=== PATIENT | female | born 1960 | race Caucasian/White ===

== ENCOUNTER 2018-09-05 15:20 | Emergency (ER) | payer OTHER ==
[~2018-09-05] VITALS: Ht 172.7 cm; Wt 86.2 kg
[2018-09-05 16:24] VITALS: BP 158/85
== END 2018-09-05 16:30 | disposition home or self-care (01) ==
LOC: FSED 15:20
DX: M54.2 Cervicalgia (principal); M54.6 Pain in thoracic spine; S16.1XXA Strain of muscle, fascia and tendon at neck level, initial encounter; S23.3XXA Sprain of ligaments of thoracic spine, initial encounter
CPT/HCPCS: 99282

== ENCOUNTER 2018-10-24 20:58 | Emergency (ER) | payer OTHER ==
[~2018-10-24] VITALS: Ht 172.7 cm; Wt 86.2 kg
[2018-10-25] MEDS ORDERED: VALIUM2 MG PO (02:56)
[2018-10-25] MEDS ORDERED: ULTRAM50 MG PO (02:56)
== END 2018-10-24 22:08 | disposition left against medical advice (07) ==
LOC: FSED 20:58
DX: S00.83XA Contusion of other part of head, initial encounter (principal); S50.01XA Contusion of right elbow, initial encounter; S80.02XA Contusion of left knee, initial encounter; S20.219A Contusion of unspecified front wall of thorax, initial encounter; W17.89XA Other fall from one level to another, initial encounter; Y93.I9 Activity, other involving external motion; Y92.488 Other paved roadways as the place of occurrence of the external cause
CPT/HCPCS: 99282

== ENCOUNTER 2018-10-24 22:28 | Emergency (ER) | payer OTHER ==
[~2018-10-24] VITALS: Ht 172.7 cm; Wt 86.2 kg
[2018-10-25 00:03] LABS: BASOPHILS # (AUTO) 0.1 (0.0-0.1); BASOPHILS % 0.6 % (0.0-1.0); HEMATOCRIT 42.3 % (34.2-44.1); HEMOGLOBIN 13.9 g/dL (12.0-16.0); LYMPHOCYTES # (AUTO) 2.9 (1.0-3.2); MEAN CORPUSCULAR HEMOGLOBIN 30.5 pg (28-32); MEAN CORPUSCULAR HGB CONC 32.9 g/dL (31-35); MEAN CORPUSCULAR VOLUME 92.8 fL (81-99); MONOCYTES # (AUTO) 1.1 (0.2-0.8); MONOCYTES % 8.9 % (4.4-11.3); NEUTROPHILS # (AUTO) 7.9 (2.1-6.9); NEUTROPHILS % 66.2 % (38.7-80.0); PLATELET COUNT 292 x10e3/uL (140-360); RED BLOOD COUNT 4.56 x10e6/uL (3.6-5.1); RED CELL DISTRIBUTION WIDTH 12.4 % (11.7-14.4)
[2018-10-25 00:23] LABS: ALANINE AMINOTRANSFERASE 22 IU/L (0-55); ALBUMIN 3.5 g/dL (3.5-5.0); ALKALINE PHOSPHATASE 81 IU/L (40-150); ANION GAP 13.8 mmol/L (8-16); BLOOD UREA NITROGEN 12 mg/dL (7-26); BUN/CREATININE RATIO 15 (6-25); CALCIUM 9.1 mg/dL (8.4-10.2); CARBON DIOXIDE 23 mmol/L (22-29); CHLORIDE 105 mmol/L (98-107); CREATININE, SERUM 0.82 mg/dL (0.57-1.11); EST GLOMERULAR FILTRATION RATE > 60 ML/MIN (60-); GLUCOSE 117 mg/dL (74-118); POTASSIUM 3.8 mmol/L (3.5-5.1); SODIUM 138 mmol/L (136-145)
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
[2018-10-25] MEDS ORDERED: ONDANSETRON HCL INJ 2MG/ML 2ML 2 MG/ML VIAL IV STA (01:53)
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
[2018-10-25] MEDS ORDERED: MORPHINE SULFATE 5 MG/ML VIAL IV ONE (02:00)
[2018-10-25] MEDS ORDERED: MORPHINE SULFATE INJ 4 MG/ML INJ 1ML ONE ×2 (02:04→04:17)
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
[2018-10-25] MEDS ORDERED: VALIUM2 MG PO (02:56)
[2018-10-25] MEDS ORDERED: ULTRAM50 MG PO (02:56)
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
[2018-10-25] MEDS ORDERED: KETOROLAC TROMETHAMINE 30 MG/ML VIAL ONE (04:17)
[2018-10-25] MEDS ORDERED: MORPHINE SULFATE INJ 4 MG/ML INJ 1ML IV STA (04:33)
[2018-10-25] MEDS ORDERED: KETOROLAC TROMETHAMINE 30 MG/ML VIAL IV STA (04:33)
[2018-10-25 04:44] VITALS: BP 116/74
[2018-10-25] MEDS ORDERED: SODIUM CHLORIDE 0.9% 50ML 50 ML ONE (11:17)
[2018-10-25] MEDS ORDERED: IOPAMIDOL 370 MG/ML 200 ML INFUS..BTL INJ ONE (11:17)
== END 2018-10-25 04:45 | disposition home or self-care (01) ==
LOC: ER 22:28
DX: S00.83XA Contusion of other part of head, initial encounter (principal); S20.219A Contusion of unspecified front wall of thorax, initial encounter; S50.01XA Contusion of right elbow, initial encounter; S80.02XA Contusion of left knee, initial encounter; W17.89XA Other fall from one level to another, initial encounter; Y93.I9 Activity, other involving external motion; Y92.488 Other paved roadways as the place of occurrence of the external cause
CPT/HCPCS: 36415; 70450; 71260; 72125; 73060 ×2; 73080; 73110; 73562; 74177; 80053; 85025; 96374; 99284; J1885; J2270; J2405; Q9967

== ENCOUNTER 2019-05-29 06:59 | Emergency (ER) | payer OTHER ==
[~2019-05-29] VITALS: Ht 172.7 cm; Wt 86.2 kg
[~2019-05-29 06:59] MED LIST: ULTRAM50 MG PO; VALIUM2 MG PO
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
[2019-05-29] MEDS: DEXAMETHASONE SOD PHOS 10 MG/1 ML VIAL IM ONE (07:22)
[2019-05-29] MEDS ORDERED: DEXAMETHASONE SOD PHOS 10 MG/1 ML VIAL ONE (07:28)
== END 2019-05-29 07:33 | disposition home or self-care (01) ==
LOC: FSED 06:59
DX: J02.9 Acute pharyngitis, unspecified (principal)
CPT/HCPCS: 83518; 99283; J1100

== ENCOUNTER 2019-11-18 13:01 | Emergency (ER) | payer OTHER ==
[~2019-11-18] VITALS: Ht 172.7 cm; Wt 86.2 kg
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
[2019-11-18] MEDS ORDERED: ONDANSETRON HCL INJ 2MG/ML 2ML 2 MG/ML VIAL IV STA (13:18)
[2019-11-18] MEDS ORDERED: SODIUM CHLORIDE 0.9% 1000ML 1,000 ML IV STA (13:18)
[2019-11-18] MEDS ORDERED: SODIUM CHLORIDE 0.9% 1000ML 1,000 ML ONE (13:49)
[2019-11-18] MEDS ORDERED: ONDANSETRON HCL INJ 2MG/ML 2ML 2 MG/ML VIAL ONE (13:49)
--- NOTE | 2019-11-18 13:55 | Diagnostic Imaging Report ---
EXAMINATION: CXR 1 VEW - HOP INDICATION: Headache, vomiting COMPARISON: None FINDINGS: LINES/TUBES:None LUNGS:The lungs are well-inflated. No focal consolidation or pulmonary edema. PLEURA:No pleural effusion or pneumothorax. MEDIASTINUM:The cardiomediastinal silhouette appears normal in size and shape. BONES/SOFT TISSUES:No acute osseous injury. ABDOMEN:No free air under the diaphragm. IMPRESSION: No focal pneumonia or pulmonary edema. Signed by: Ramo Musa MD on 11/18/2019 1:51 PM
--- NOTE | 2019-11-18 14:11 | Emergency Department Note ---
History of Present Illnes History of Present Illness Chief Complaint: General Medicine Complaints History of Present Illness This is a 59 year old female presented with vomiting and diarrhea for 2 days.No abdominal pain, no fever, no chest pain.. Historian: Patient Arrival Mode: Car Onset (how long ago): day(s) (2) Location: generalized Quality: dull Radiation: non-radiation Severity: mild, moderate Onset quality: gradual Duration (how long): day(s) (2) Timing of current episode: intermittent Progression: waxing and waning Chronicity: new Relieving factors: none Exacerbating factors: none Associated symptoms: denies other symptoms, nausea/vomiting Treatments prior to arrival: none Past Medical/Family History Physician Review I have reviewed the patient's past medical and family history. Any updates have been documented here. Past Medical History Recent Fever: No Clinical Suspicion of Infectio: No New/Unexplained Change in Ment: No Past Medical History: Chronic Back Pain Past Surgical History: Hysterectomy Other Surgery: bladder sling Social History Smoking Cessation: Unknown if ever smoked Counseling Performed: No Alcohol Use: None Any Illegal Drug Use: No TB Exposure/Symptoms: No Physically hurt or threatened: No Other Last Tetanus: UTD Last Flu: u Last Pneumovax: u Review of Systems Review of Systems Constitutional: no symptoms EENTM: no symptoms Cardiovascular: no symptoms Respiratory: no symptoms Gastrointestinal: no symptoms, diarrhea, nausea, vomiting Genitourinary: no symptoms Musculoskeletal: no symptoms Integumentary: no symptoms Neurological: no symptoms Psychological: no symptoms Endocrine: no symptoms Hematological/Lymphatic: no symptoms Review of other systems All other systems reviewed and negative. Physical Exam Related Data Allergies: Coded Allergies: Penicillins (Verified Allergy, Intermediate, Hives, 11/18/19) Sulfa (Sulfonamide Antibiotics) (Verified Allergy, Intermediate, Hives, 11/18/19) Triage Vital Signs Vital Signs Date Time Temp Pulse Resp B/P (MAP) Pulse Ox O2 Delivery O2 Flow Rate FiO2 11/18/19 13:09 98.4 92 16 140/87 99 Vital signs reviewed: Yes Physical Exam CONSTITUTIONAL Constitutional: well-developed, well-nourished HENT HENT: normocephalic, atraumatic, oropharynx clear/moist, nose normal HENT - Ear: left ext ear normal, right ext ear normal EYES Eyes: PERRL, conjunctivae normal NECK Neck: ROM normal PULMONARY Pulmonary: effort normal, breath sounds normal CARDIOVASCULAR Cardiovascular: regular rhythm, heart sounds normal, capillary refill normal, normal rate GASTROINTESTINAL Abdominal: soft, nontender, bowel sounds normal GENITOURINARY Genitourinary: exam deferred SKIN Skin: warm, dry MUSCULOSKELETAL Musculoskeletal: ROM normal NEUROLOGICAL Neurological: alert, oriented x 3, no gross motor or sensory deficits PSYCHOLOGICAL Psychiatric/behavioral: mood/affect normal, judgement normal Results Laboratory Lab results reviewed: Yes Imaging Imaging results reviewed: Yes Procedures 12 Lead ECG Interpretation Youth Specialist: Interpreted by ED physician Rhythm: sinus rhythm Rate: normal QRS axis: normal ST Segments Normal: Yes T Waves Normal: Yes Critical Care Time Subsequent provider I assumed direction of critical care for this patient from another provider of my specialty. Assessment & Plan Assessment & Plan Problems: (1) Dehydration (2) Diarrhea (3) Vomiting Reassessment Reassessment time: 14:11 Reassessment feeling better Last Vital Signs Date Time Temp Pulse Resp B/P (MAP) Pulse Ox O2 Delivery O2 Flow Rate FiO2 11/18/19 13:09 98.4 92 16 140/87 99 Home Meds Active Scripts Tramadol Hcl (ULTRAM) 50 Mg Tablet, 50 MG PO Q6H PRN for MUSCLE SPASMS, #10 TAB Prov:EDUARDO PENA DO 10/25/18 Diazepam (VALIUM) 2 Mg Tablet, 5 MG PO Q6H PRN for MUSCLE SPASMS, #10 0 Refills Prov:EDUARDO PENA DO 10/25/18 Medications in the ED Ondansetron HCl 4 mg NOW STAT IV Last administered on 11/18/19at 13:49; Admin Dose 4 MG; Start 11/18/19 at 13:18; Stop 11/18/19 at 13:23; Status DC Sodium Chloride 1,000 ml @ 0 mls/hr Q0M STAT IV Last administered on 11/18/19at 13:49; Admin Dose 1,000 MLS/HR; Start 11/18/19 at 13:18; Stop 11/18/19 at 13:22; Status DC Ondansetron HCl 4 mg STK-MED ONCE .ROUTE ; Start 11/18/19 at 13:49; Stop 11/04 10/24 at 13:46; Status DC Sodium Chloride 1,000 ml @ ud STK-MED ONCE .ROUTE ; Start 11/18/19 at 13:49; Stop 11/18/19 at 13:47; Status DC CARLOS YU MD November 18, 2019 14:10
== END 2019-11-18 14:20 | disposition home or self-care (01) ==
LOC: FSED 13:01
DX: R11.2 Nausea with vomiting, unspecified (principal); R19.7 Diarrhea, unspecified; E86.0 Dehydration; R51 Headache; M54.9 Dorsalgia, unspecified; G89.29 Other chronic pain
CPT/HCPCS: 71045; 80053; 80076; 81003; 84484; 85025; 93005; 99284; J2405; J7030